=== PATIENT | male | born 1975 | race Hispanic/Latino ===

== ENCOUNTER 2018-07-28 23:01 | Emergency (ER) | payer SELFPAY ==
[2018-07-28] MEDS ORDERED: ASPIRIN TABLET 325 MG TAB PO ONE (23:17)
[2018-07-28] MEDS ORDERED: NITROGLYCERIN 0.4 MG 25 EA TAB SL ONE (23:18)
[2018-07-28] MEDS ORDERED: ALUM & MAG HYDROX-SIMETHICONE 30 ML, LIDOCAINE VISCOUS 2% 15 ML PO ONE ×2 (23:20)
[2018-07-28] MEDS ORDERED: LIDOCAINE HCL 2% (MOUTH-THROAT) 15 ML UD ONE (23:24)
[2018-07-28] MEDS ORDERED: ALUM & MAG HYDROX-SIMETHICONE 30 ML UD ONE (23:24)
--- NOTE | 2018-07-28 23:37 | RAD ---
CLINICAL HISTORY: chest pain COMPARISON: None. 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 Lungs are clear without consolidation, atelectasis, mass or edema. There is no pleural effusion. There is no pneumothorax. There are no acute osseous findings. IMPRESSION: Clear lungs. Electronically signed by: Naveen Blanchard MD 07/28/2018 11:34 PM [employer]EL[employer]
[2018-07-29] MEDS ORDERED: MORPHINE SULFATE INJ 10 MG/ML VIAL IV ONE (00:18)
[2018-07-29] MEDS ORDERED: ENOXAPARIN SODIUM 80 MG/0.8 ML SYG SUBCU ONE (00:20)
[2018-07-29] MEDS ORDERED: diltiaZEM HCL TAB 30 MG TAB PO ONE (00:20)
--- NOTE | 2018-07-29 00:35 | ED.PDOC ---
History of Present Illness - General Chief Complaint: Chest Pain/MD Stated Complaint: pressure in chest Time Seen by Provider: 07/28/18 23:08 Source: patient Exam Limitations: no limitations - History of Present Illness Initial Comments: The patient is a 43-year-old male presenting to emergency room secondary to chest pain. On extended history it appears the patient has a history of atrial fibrillation in the distant past, approximately 6-7 years ago for which he was on Coumadin and also on a statin and aspirin. A couple of years after that he stop taking the Coumadin but apparently had remained in sinus rhythm. He should've continued the aspirin and statin but he simply did not. Over the past 6 months the patient has had frequent daily episodes of chest pain and as sociated shortness of breath requiring rest with exertion. The worst of the episodes have come with the feeling of palpitations. the patient took methamphetamine and since that time has had increasing frequency of chest pain and palpitations, the worst being last night. He shows up here with chest discomfort rated at a 2-3 out of 10. He is not feeling any palpitations currently. No syncope or near syncope. He denies any other drug use. Timing/Duration: unsure Severity: moderate Improving Factors: nothing Worsening Factors: nothing Associated Symptoms: chest pain, shortness of breath Allergies/Adverse Reactions: Allergies NO KNOWN ALLERGY Allergy (Verified 07/28/18 23:09) Home Medications: Ambulatory Orders Aspirin 325 mg PO 07/28/18 Review of Systems - Review of Systems Constitutional: States: no symptoms reported EENTM: States: no symptoms reported Respiratory: States: short of breath - with exertion Cardiology: States: chest pain Gastrointestinal/Abdominal: States: no symptoms reported Genitourinary: States: no symptoms reported Musculoskeletal: States: no symptoms reported Skin: States: no symptoms reported Neurological: States: no symptoms reported Endocrine: States: no symptoms reported All other Systems: No Change from Baseline Past Medical History (General) - Patient Medical History Hx Cardiac Disorders: Yes - a-fib Hx Diabetes: No Surgical History: no surgical history - Vaccination History Hx Influenza Vaccination: No - Social History Hx Alcohol Use: - quit Family Medical History - Family History Father Family History: Unknown Physical Exam - Physical Exam General Appearance: Alert, Comfortable, No apparent distress Eye Exam: bilateral normal Ears, Nose, Throat: hearing grossly normal, normal ENT inspection Neck: full range of motion, supple Respiratory: lungs clear, normal breath sounds, no respiratory distress, no accessory muscle use Cardiovascular/Chest: normal peripheral pulses, regular rate, rhythm, no edema Peripheral Pulses: radial,right: 2+, radial,left: 2+, dorsalis pedis,right: 2+, dorsalis pedis,left: 2+ Gastrointestinal/Abdominal: non tender, soft Rectal Exam: deferred Back Exam: no CVA tenderness, no vertebral tenderness Extremity: non-tender, normal inspection, no pedal edema, no calf tenderness, normal capillary refill 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, alert, normal mood/affect, oriented x 3 Skin Exam: normal color Comments: Vital Signs - 24 hr 07/28/18 07/28/18 07/28/18 23:05 23:10 23:30 Temperature 95.9 F L Pulse Rate [ 68 62 79 Apical] Respiratory 14 Rate Blood Pressure 138/78 123/78 [Right Arm] O2 Sat by Pulse 99 Oximetry 07/28/18 07/29/18 23:35 00:01 Temperature Pulse Rate [ 85 74 Apical] Respiratory 14 Rate Blood Pressure 98/64 112/72 [Right Arm] O2 Sat by Pulse 98 Oximetry Progress - Progress Progress: the patient is a 43-year-old male presenting to emergency room secondary to chest pain that appears to be most consistent with unstable angina on top of a history of recent fairly stable angina. The patient also likely had this exacerbation due to methamphetamine use. Initial set of cardiac enzymes is negative. No relief was obtained with GI medications or nitroglycerin. Nitroglycerin tablet did drop the systolic blood pressure by about 35 points. It did not improve the chest pain. He has received aspirin, morphine, diltiazem, Lovenox and the nitroglycerin. No episodes of atrial fibrillation have been seen on telemetry here. Serum drug screen would be recommended at the next blood draw, as ours is a send out. Transferring for cardiology evaluation. The patient does understand that unless there is an absolute indication, he will likely not be receiving any invasive interventional procedures with cardiology due to his significantly increased risk of a poor outcome with his substance abuse. The patient does understand this. vital signs have remained stable otherwise. Current pain level is a 2. transferring for specialty care. Acceptance is appreciated. - Results/Orders Results/Orders: EKG shows borderline R-wave progression in anterior leads. Normal sinus rhythm at 68 bpm. Normal QT interval. Normal axis. No ST segment or T-wave changes definitive for ischemia. Chest x-ray shows no acute pathology. No fluid overload. No cardiomegaly. No mass. No infiltrate. No pneumothorax. Laboratory Tests 07/28/18 07/28/18 07/28/18 23:17 23:17 23:19 WBC 7.9 RBC 4.78 Hgb 15.0 Hct 43.8 MCV 91.5 MCH 31.3 H MCHC 34.2 RDW 14.3 Plt Count 283 MPV 7.3 L Absolute Neuts (auto) 4.40 Absolute Lymphs (auto) 2.60 Absolute Monos (auto) 0.70 Absolute Eos (auto) 0.30 Absolute Basos (auto) 0.00 Neutrophils % 54.9 Lymphocytes % 32.6 Monocytes % 8.4 Eosinophils % 3.7 Basophils % 0.4 PT 9.6 INR 0.96 PTT (SP) 27.5 Sodium 135 Potassium 3.6 Chloride 100 L Carbon Dioxide 23 Anion Gap 15.6 BUN 18 Creatinine 0.58 L BUN/Creatinine Ratio 31.0 H Random Glucose 135 H Serum Osmolality 274.0 L Calcium 9.1 Magnesium 1.9 Total Bilirubin 1.8 H AST 46 H ALT 92 H Alkaline Phosphatase 85 Creatine Kinase 245 H* CK-MB (CK-2) 4.2 CK-MB (CK-2) % Not Reportable Troponin I < 0.02 B-Natriuretic Peptide < 5.0 Serum Total Protein 7.4 Albumin 4.3 Globulin 3.1 Albumin/Globulin Ratio 1.4 Amylase 38 Lipase 31 Departure - Departure Clinical Impression: Unstable angina, Methamphetamine abuse Disposition: Transfer to Hospital Home Medications: Ambulatory Orders Aspirin 325 mg PO 07/28/18 Transfer to Outside Facility - Transfer Information Accepting Provider:: dr campbell Accepting Facility: [facility] Reason for Transfer: required specialist not available
[2018-07-29 00:44] VITALS: BP 105/68; TEMP 97.3; O2SAT 99
== END 2018-07-29 01:00 | disposition short-term general hospital (02) ==
LOC: ER 23:01
DX: I20.0 Unstable angina (principal); F15.90 Other stimulant use, unspecified, uncomplicated; R06.02 Shortness of breath; I48.91 Unspecified atrial fibrillation
CPT/HCPCS: 36415; 71045; 80053; 82150; 82550; 82553; 83690; 83735; 83880; 84484; 85025; 85610; 85730; 93005; J1650; J2270